=== PATIENT | male | born 1945 | race Caucasian/White ===

== ENCOUNTER → 2018-06-18 08:16 | Outpatient (BNVA) | payer OTHER, SELFPAY | PROVIDERS: PCP Family Medicine; Referring Provider Family Medicine; Visit Provider Student in an Organized Health Care Education/Training Program | DX: G56.03 Carpal tunnel syndrome, bilateral upper limbs (principal); I10 Essential (primary) hypertension | CPT/HCPCS: 99204; 99214 ==

== ENCOUNTER 2018-07-15 09:48 | Day surgery (SDC) | payer OTHER, SELFPAY ==
[2018-07-15 09:56] VITALS: BP 107/71; PULSE 76; RESP 16; TEMP 36; O2SAT 94
[2018-07-15] MEDS: Lactated Ringers 1,000 ML 80 ML IV (10:25)
--- NOTE | 2018-07-15 11:36 | W.PM.DSUDISC ---
Discharge Plan Disposition Patient Disposition: HOME Condition: Good Discharge Details Reason For Visit: R CTS Attending Provider: Tremayne Hernandez Primary Care Provider: Ashwin Silva [place] Meds and New Rx's Prescriptions: New hydrocodone-acetaminophen 5-325 mg tablet 1 tab PO Q4H PRN (Reason: pain) Qty: 5 RF: 0 acetaminophen 500 mg tablet 500 mg PO Q6H PRN PRN (Reason: pain) Qty: 60 RF: 3 ibuprofen 600 mg tablet 600 mg PO TID PRNQty: 90 RF: 3 Continued simvastatin 40 MG tablet 1 tab PO DAILY RF: 0 aspirin [Aspirin Low-Strength] 81 MG tablet,chewable 1 tab PO DAILY RF: 0 cholecalciferol (vitamin D3) 1,000 UNIT tablet 1 tab PO DAILY RF: 0 lisinopril-hydrochlorothiazide 1 EACH tablet 1 ea PO DAILY RF: 0 Discontinued ibuprofen 200 MG tablet 2 tab PO PRN RF: 0 Discharge Instructions Stand Alone Forms: Mary Baez Tunnel Release Referrals: Tremayne Hernandez MD [ [facility] STAFF PHYSICIAN] - Activity:: Elevate Remove Dressings/Wound Care:: 72 hours Shower/Bathe:: 72 hours Diet:: As Tolerated Discharge Orders Discharge Orders: Discharge Order (Routine); Ordered 07/15/18 Ordered By: Tremayne Hernandez DS: Diagnosis Discharge Diagnosis (1) 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
[2018-07-15] MEDS: Sodium Bicarbonate 50 MEQ/50 ML VIAL (11:54)
[2018-07-15] MEDS: Lidocaine 1% Pres-Free 5 ML VIAL (11:54)
[2018-07-15 12:53] VITALS: BP 134/79; PULSE 55; RESP 16; TEMP 35.9; O2SAT 99
--- NOTE | 2018-07-16 07:39 | W.PM.OP ---
Date of service: 07/15/18 Time of Service: 13:39 Operative Note DATE OF PROCEDURE: 07/15/18 PRE-OP DIAGNOSIS: Right Carpal Tunnel Syndrome POST-OP DIAGNOSIS: same PROCEDURE: Right Endoscopic Carpal Tunnel Release SURGEON: Tremayne Hernandez ANESTHESIA: MAC ESTIMATED BLOOD LOSS: 0 PATHOLOGY: none sent TOURNIQUET TIME: 6 COMPLICATIONS: None Patient was transported to: same day Patient's condition: stable Indications: I have seen Mina in clinic for symptoms of carpal tunnel syndrome. The numbness, tingling, and pain limited function. Clinical exam findings with nerve conduction tests confirmed the diagnosis of carpal tunnel syndrome. Nonoperative measures such as bracing, time, activity modifications had been tried but disability and pain persisted. I discussed carpal tunnel release with the patient. I reviewed the risks of the procedure to include, but not limited to, bleeding, infection, pain, stiffness, incomplete release, damage to nerves or vessels, persistent numbness, recurrence. Despite these risks, the patient elected to proceed. Findings: There was tightened carpal tunnel. This was dilated and released successfully with the endoscopic with increased space within the tunnel. The antebrachial fascia was released proximally freeing the median nerve at the wrist. Procedure Description: Mina was greeted in the preoperative holding area where the correct side was identified and marked. The consent was reviewed with the patient and signed. The history and physical was updated. All questions were answered. Mina was taken back to the operating room. The patient was placed into the supine position on the operating room table with the right arm on an arm board. A nonsterile tourniquet was placed high onto the arm. All bony prominences were well padded. Prophylactic antibiotics in the form of cefazolin were administered. The right arm was then prepped with Chloraprep and draped in a standard fashion with stockinette and extremity drape. A timeout to confirm correct identity, side and site, procedure, allergies, anesthesia, and medical concerns was performed. The surgical site was marked in the volar wrist creases in line with the radial border of the fourth ray. This area was anesthetized with approximately 6cc of 1% Lidocaine. The limb was then exsanguinated with an Esmarch. The skin was incised with a 15 blade, approximately 1cm. The skin only was cut and the deeper tissue was dissected bluntly with a tenotomy scissor, avoiding passing nerve and venous structures. The fascia was penetrated and opened bluntly. A two-prong skin hook was placed under this proximal fascial edge. A series of hamate finders were used to identify and dilate the carpal tunnel. Synovial elevator was used to free synovial attachments to the underside of the transverse carpal ligament. My thumb was kept in the palm to demetri the distal extent of the carpal tunnel and correctly position the hand. The Microaire endoscope was inserted without difficulty and without resistance. Excellent visualization showed horizontally running fibers of the transverse carpal ligament (TCL). The distal extent of the TCL was visualized and the end of the scope palpated with the thumb. The blade was elevated and withdrawn from distal to proximal. The TCL was split into two flaps. The endoscope was reinserted to confirm complete release and any remnant ligament was incised. The scope was withdrawn and the proximal aspect of the carpal tunnel was grossly inspected and appeared release with the median nerve visible. The antebrachial fascia at the level of the wrist was then freed from the overlying skin and then the underlying median nerve with blunt dissection. This was transected longitudinally for about 3cm proximal to the wrist incision. The wound was then irrigated with easy flow of irrigant distally and proximally. The incision was closed with a single 4-0 Nylon suture. The wound was dressed with Xeroform, Gauze, Kerlix and Zackary. The tourniquet was deflated with the initial dressing and held with some pressure. Blood flow returned easily to all digits with capillary refill less than 2 seconds. The patient tolerated the procedure well and was returned to the Same Day Surgery area in a stable condition suffering no known complication.
== END 2018-07-15 13:05 | disposition home or self-care (01) ==
PROVIDERS: PCP Family Medicine; Visit Provider Student in an Organized Health Care Education/Training Program
PROC: 01N54ZZ Release Median Nerve, Percutaneous Endoscopic Approach (ICD-10-PCS; CPT 29848; principal; 2018-07-15 11:00)
DX: G56.01 Carpal tunnel syndrome, right upper limb (principal)
CPT/HCPCS: 29848; J0690; J1100; L3650

== ENCOUNTER → 2018-07-23 14:20 | Outpatient (BNVA) | payer OTHER, SELFPAY | PROVIDERS: PCP Family Medicine; Referring Provider Family Medicine; Visit Provider Student in an Organized Health Care Education/Training Program | DX: Z47.89 Encounter for other orthopedic aftercare (principal); G56.01 Carpal tunnel syndrome, right upper limb ==

== ENCOUNTER 2018-07-25 12:55 | Outpatient (REF) | payer OTHER, SELFPAY ==
[2018-07-25 13:47] LABS: HCT 41.4 % (40.0-50.0); HGB 13.8 g/dL (13.5-17.5); Mean Corp. HGB Concentration 33.3 g/dL (32.0-36.0); Mean Corpuscular Hemoglobin 31.9 pg (27.0-33.0); Mean Corpuscular Volume 95.6 fL (80-95); Mean Platelet Volume 11.2 fL (8.0-11.0); Platelet Count 301 x1000/uL (130-400); RBC 4.33 m/cumm (4.50-6.00); RBC Distribution Width 12.9 % (11.8-14.1); White Blood Cell Count 6.03 k/cumm (4.4-10.8)
[2018-07-25 17:41] LABS: Anion Gap 8.5 mmol/L (3-11); BUN 11 mg/dL (7-18); CO2 30.5 mmol/L (21.0-32.0); Calcium 9.4 mg/dL (8.5-10.1); Chloride 99 mmol/L (98-107); Glucose 93 mg/dL (70-100); Potassium 4.1 mmol/L (3.5-5.1); Sodium 138 mmol/L (136-145); TSH (W/Ref FT4) 1.16 uIU/mL (0.358-3.74); Vitamin B12 470 pg/mL (193-986)
[2018-07-28 12:25] LABS: Syphilis Serology (RPR) Negative (Negative)
== END 2018-07-25 13:15 ==
LOC: NCHCN 12:55
PROVIDERS: PCP Family Medicine; Visit Provider Family Medicine
DX: R41.3 Other amnesia (principal); I10 Essential (primary) hypertension
CPT/HCPCS: 80048; 85027; 82607; 84443; 86592

== ENCOUNTER 2018-08-22 02:22 | Outpatient (CLI) | payer OTHER, SELFPAY ==
--- NOTE | 2018-08-22 13:00 | DI.US_ITS ---
SYMPTOMS/DIAGNOSIS: NEW PAIN, RIGHT TESTICLE, ENLARGEMENT OF RIGHT TESTICLE, TENDERNESS OF EPIDIDYMIS SCROTAL ULTRASOUND: The testicles are normal in size and show normal blood flow. There is no evidence of mass, torsion or orchitis. There is a large right hydrocele containing debris. There are multiple cysts of the right epididymis in the region of the epididymal head. A few tiny cysts are seen in the left epididymal head. There is no increased blood flow to suggest epididymitis. There is a small left hydrocele, which appears clear. IMPRESSION: Multiple cysts in the head of the right epididymis, the largest measuring 2.3 cm. A large right hydrocele is present containing some internal debris.
== END 2018-08-22 02:42 ==
PROVIDERS: PCP Family Medicine; Visit Provider Family Medicine
DX: N50.811 Right testicular pain (principal); N50.3 Cyst of epididymis; N43.3 Hydrocele, unspecified; N44.8 Other noninflammatory disorders of the testis
CPT/HCPCS: 76870

== ENCOUNTER 2018-11-10 17:49 | Outpatient (REF) | payer OTHER, SELFPAY ==
[2018-11-10 18:39] LABS: C-Reactive Protein 0.13 mg/dL (0.0-0.3)
== END 2018-11-10 18:09 ==
LOC: NCHCN 17:49
PROVIDERS: PCP Family Medicine; Visit Provider Family Medicine
DX: Z51.81 Encounter for therapeutic drug level monitoring (principal); Z79.899 Other long term (current) drug therapy; I10 Essential (primary) hypertension
CPT/HCPCS: 80178; 86140

== ENCOUNTER 2018-12-05 16:32 | Outpatient (REF) | payer OTHER, SELFPAY ==
[2018-12-05 18:49] LABS: HGB 13.4 g/dL (13.5-17.5); Mean Corp. HGB Concentration 33.5 g/dL (32.0-36.0); Mean Corpuscular Hemoglobin 32.7 pg (27.0-33.0); Mean Corpuscular Volume 97.6 fL (80-95); Mean Platelet Volume 10.9 fL (8.0-11.0); Platelet Count 279 x1000/uL (130-400); RBC Distribution Width 13.3 % (11.8-14.1); White Blood Cell Count 6.01 k/cumm (4.4-10.8)
[2018-12-05 19:03] LABS: Lithium 0.43 mmol/L (0.60-1.20)
[2018-12-05 19:23] LABS: Anion Gap 8.9 mmol/L (3-11); BUN 18 mg/dL (7-18); CO2 27.1 mmol/L (21.0-32.0); Chloride 108 mmol/L (98-107); Glucose 112 mg/dL (70-100); NT-proBNP 145 pg/mL; Potassium 4.1 mmol/L (3.5-5.1); Sodium 144 mmol/L (136-145); TSH (W/Ref FT4) 1.22 uIU/mL (0.36-3.74)
== END 2018-12-05 16:52 ==
LOC: NCHCN 16:32
PROVIDERS: PCP Family Medicine; Visit Provider Family Medicine
DX: Z79.899 Other long term (current) drug therapy (principal); Z51.81 Encounter for therapeutic drug level monitoring; R06.02 Shortness of breath
CPT/HCPCS: 80048; 85027; 80178; 83880; 84443

== ENCOUNTER 2018-12-11 00:14 | Outpatient (CLI) | payer OTHER, SELFPAY ==
--- NOTE | 2018-12-11 11:08 | DI.RAD_ITS ---
SYMPTOMS/DIAGNOSIS: SHORTNESS OF BREATH, R06.02, NEW SHORTNESS OF BREATH PA AND LATERAL CHEST: The heart is not enlarged. The lungs are clear with some apparent bibasilar linear scarring. No pleural effusion seen. CONCLUSION: No evidence of acute process.
== END 2018-12-11 00:34 ==
PROVIDERS: PCP Family Medicine; Visit Provider Family Medicine
DX: R06.02 Shortness of breath (principal)
CPT/HCPCS: 71046

== ENCOUNTER 2019-01-15 00:13 | Outpatient (CLI) | payer OTHER, SELFPAY ==
--- NOTE | 2019-01-15 11:30 | ETT_ITS ---
*[facility]* *[facility]* [address] [place] [address] Stress Electrocardiography Wilberto protocol Date of study: 01/15/2019 *PATIENT PRESENTATION* Height: 177.8cm (70in) Blood Pressure: Weight: 72.7kg (160lb) BSA: 1.9m^2 Ordering physician: Ashwin Silva Impressions: Normal study after maximal exercise. Summary: 1. Stress ECG conclusions: Connolly treadmill score: 10. This score predicts a low risk of cardiac events. Indication: R06.02. History: REASON FOR TESTING: PATIENT REPORTS SOB WITH ACTIVITY SINCE SEPTEMBER OF THIS YEAR. HE STATES DURING HIS WARM UP MOUNTAIN BIKING ACTIVITY IS WHEN HE GETS SOB AND ONCE IT GOES AWAY HE IS FINE FOR THE REST OF THE DAY. HE DENIES CHEST PAIN SOB UPON ARRIVAL TO TESTING TODAY. SIGNIFICANT PAST MEDICAL HISTORY: ANXIETY ATTACKS, INSOMNIA. SMOKING STATUS: QUIT 1987. SMOKED PIPE FOR 30 YEARS. EXERCISE ROUTINE: MOUNTAIN BIKING FIVE DAYS PER WEEK FOR APPROXIMATELY THREE HOURS PER TIME. Risk factors: Family history of coronary artery disease. Hypertension. Dyslipidemia. Cholesterol: 191mg/dl. HDL: 47mg/dl. LDL: 128mg/dl. Triglycerides: 59mg/dl. ALLERGIES: SULFA. MEDICATIONS: RISPERIDONE 2.5 MG DAILY, LISINOPRIL 10 MG DAILY, IBUPROFEN 200-600 MG PRN. Protocol: Wilberto protocol. Baseline ECG: SINUS BRADYCARDIA. HE 52 BPM. Stress protocol: + +---+ + !Stage !HR !BP (mmHg) ! + +---+ + !Baseline supine !52 !172/90 (117)! + +---+ + !Baseline standing !54 !154/80 (105)! + +---+ + !Stage I; 1.7mph, 10degrees; 3 min !85 !160/82 (108)! + +---+ + !Stage II; 2.5mph, 12degrees; 3 min !98 !172/68 (103)! + +---+ + !Stage III; 3.4mph, 14degrees; 3 min!126!198/92 (127)! + +---+ + !Peak stress !140! ! + +---+ + !Recovery; 1 min !69 !184/82 (116)! + +---+ + !Recovery; 3 min !63 !164/88 (113)! + +---+ + !Recovery; 6 min !61 !148/84 (105)! + +---+ + * Stress results: STRESS TEST ENDED IN 9 MINUTES 44 SECONDS DUE TO INCREASING DIFFICULTY WITH WALKING WITH THE SPEED OF TREADMILL. PATIENT STATES HE COULD HAVE GONE LONGER. SLIGHTLY HYPERTENSIVE BLOOD PRESSURE AT BASELINE. NORMAL HEART RATE AND BLOOD PRESSURE RESPONSE TO EXERCISE. MAX HEART RATE:140. 96 % OF TARGET HEART RATE ACHIEVED. MET'S: 11.34. RARE PAC'S NO ANGINA. NO SIGNIFICNT ST SEGMENT CHANGES. ABOVE AVERAGE FUNCTIONAL CAPACITY. The rate-pressure product for the peak heart rate and blood pressure was 17520tk Hg/min. Stress ECG: Connolly treadmill score: 10. This score predicts a low risk of cardiac events. Study data: Fortunato Merino MD supervised and was readily available during the procedure. This study was interpreted by [facility]. Study status: Routine. Consent: The risks, benefits, and alternatives to the procedure were explained to the patient and informed consent was obtained. Procedure: Initial setup. A baseline ECG was recorded. Surface ECG leads and manual cuff blood pressure measurements were monitored. Heart sounds: Normal. Lung sounds: Normal. Treadmill exercise testing was performed using the Wilberto protocol. Study completion: The patient tolerated the procedure well and was discharged from the lab. Discharge: The patient left the laboratory in stable condition. Birthdate: Patient birthdate: 1945. Sex: Gender: male. Study date: Study date: 01/15/2019. Study time: 00:01 AM. Signature Documentation: The Stress ECG portion of this study was interpreted by Fortunato Merino MD. Electronically signed by Fortunato Merino 01/15/2019 14:55
== END 2019-01-15 00:33 ==
PROVIDERS: PCP Family Medicine; Visit Provider Family Medicine
DX: R06.02 Shortness of breath (principal); I10 Essential (primary) hypertension; E78.5 Hyperlipidemia, unspecified; F41.9 Anxiety disorder, unspecified; Z87.891 Personal history of nicotine dependence
CPT/HCPCS: 93016; 93018; 93017

== ENCOUNTER 2019-03-25 17:30 | Outpatient (REF) | payer OTHER, SELFPAY ==
[2019-03-25 17:04] LABS: Hemoglobin A1C 6.1 % (4.5-6.2)
[2019-03-25 17:08] LABS: Calculated LDL 106 mg/dL; Cholesterol 167 mg/dL (<200); HDL Cholesterol 46 mg/dL (40-60); Triglyceride 77 mg/dL (<150)
== END 2019-03-25 17:50 ==
LOC: NCHCN 17:30
PROVIDERS: PCP Family Medicine; Visit Provider Family Medicine
DX: E78.5 Hyperlipidemia, unspecified (principal); I10 Essential (primary) hypertension; Z13.1 Encounter for screening for diabetes mellitus; T43.595S Adverse effect of other antipsychotics and neuroleptics, sequela
CPT/HCPCS: 80061; 83036

== ENCOUNTER 2019-09-16 10:02 | Outpatient (REF) | payer OTHER, SELFPAY ==
--- NOTE | 2019-09-16 09:45 | SKI_PTH ---
PATIENT: Mina Hooks LOC: [facility] U#:[id number] AGE/SX: 73/M ROOM: RE09/16/[address]: Ashwin Silva : 1945 BED: DIS: 09/16/2019 SPEC #: [id number] RECD: 09/16/19 14:42 STATUS: SHIVA GAFFNEY #: [id number] [place]: 09/16/19 09:[address]: Ashwin Silva DEPT: Surgical Specimen RECD BY: Bridget Mcclendon Tissues: 1 - SKIN BIOPSY(SHAVE/PUNCH) Procedures: SKIN LEVEL 4 SPECIAL STAIN 1 Comments: [id number]
== END 2019-09-16 10:22 ==
LOC: NCHCN 10:02
PROVIDERS: PCP Family Medicine; Visit Provider Family Medicine
DX: L30.8 Other specified dermatitis (principal)
CPT/HCPCS: 88305; 88312

== ENCOUNTER 2019-10-02 08:10 | Outpatient (CLI) | payer OTHER, SELFPAY ==
[2019-10-03 14:09] LABS: COVID-19 RT-PCR UVMMC Result Negative (Negative)
== END 2019-10-02 08:30 ==
PROVIDERS: PCP Family Medicine; Visit Provider Student in an Organized Health Care Education/Training Program
DX: Z11.59 Encounter for screening for other viral diseases (principal)
CPT/HCPCS: U0003

== ENCOUNTER 2019-10-06 06:22 | Day surgery (SDC) | payer OTHER, SELFPAY ==
--- NOTE | 2019-10-05 22:10 | HPE_ITS ---
Documented by User: Zahra Sweeney 10/05/19 22:15 Assessment and Plan Assessment and plan (1) Carpal tunnel syndrome of left wrist: Status: Chronic Assessment and plan: Plan: Patient tested negative for COVID-19 on 10/02/2019. Patient states he is remained in quarantine since being tested and denies contact with any COVID-19 positive persons. Educated patient on surgery covering surgical technique, recovery process, lauren efits and risks including but not limited to risk of infection, blood clot, damage to soft tissue/blood vessels/nerves in detail. After discussion patient gives verbal understanding of risks and elects to proceed with scheduling surgery. Patient had opportunity to have questions answered to their satisfaction. Patient will continue to be scheduled for left ECTR with Dr. Hernandez later today. History of Present Illness Narrative: Mr. Hooks is a 73-year-old male who presents to hospital for scheduled left ECTR with Dr. Hernandez later today. Patient initially had been experiencing bilateral carpal tunnel symptoms dating back to Fall 2017. Patient was seen in orthopedic clinic and underwent right ECTR on 07/15/2018 which did well. Initially patient was going to have his left carpal tunnel released shortly after his right, however due to personal issues patient postponed his left carpal tunnel release. Unfortunately, patient has continued to have numbness and tingling in his left hand that interferes with activities of daily life. Due to patient's continued symptoms he was offered surgical intervention and elected to proceed. Review of Systems Cardiovascular Cardiovascular: Denies chest pain, Denies dyspnea and Denies dyspnea on exertion Respiratory Respiratory: Denies cough, Denies dyspnea and Denies dyspnea on exertion [facility] Medical History Hyperlipidemia Hypertension Migraine headache (Chronic) Surgical History Carpal tunnel syndrome of right wrist (Chronic) Status post right ECTR on 07/15/2018 History of colonoscopy (Chronic) History of removal of cyst (Acute) Family History Mother No problems noted. Father Personal history of malignant neoplasm Small bowel malignancy Social History Smoking/Tobacco Use Status: Former Tobacco Use Quit Date: 04/29/91 Alcohol Intake: never Drug use: Never Substance use type: does not use Do you feel safe at home: Yes Meds Home Medications and Allergies Home Medications Medication Instructions Recorded Confirmed Type cholecalciferol (vitamin D3) 1 tab PO DAILY 11/27/13 10/06/19 History ibuprofen 600 mg PO TID PRN #90 tab 07/15/18 10/06/19 Rx lamotrigine 25 mg PO BID 10/05/19 10/06/19 History lisinopril 10 mg PO DAILY 10/05/19 10/06/19 History risperidone 0.5 mg PO QHS 10/05/19 10/06/19 History Allergies Allergy/AdvReac Type Severity Reaction Status Date / Time Sulfa (Sulfonamide Allergy Intermediate Unverified 10/06/19 06:30 Antibiotics) Exam Resp Effort & Inspection: normal respiratory effort and able to speak in complete sentences Auscultation: clear to auscultation bilaterally, no rales, no rhonchi and no wheezes Cardio Heart Sounds: S1 normal, S2 normal and no murmurs Pulses: radial pulses present bilaterally 2+ Documented by User: Tremayne Hernandez MD 10/06/19 07:10 Date of service: 10/06/19 Time of Service: 07:07 Assessment and Plan Assessment and plan (1) Carpal tunnel syndrome of left wrist: Status: Chronic Assessment and plan: After a review of clinical history, exam findings, and nerve conduction testing, carpal tunnel syndrome is the most reasonable diagnosis. We discussed possible treatment options to include nighttime splinting, anti-inflammatories, carpal tunnel injections, and eventually surgery. Due to the persistence of symptoms and their daily limitations with normal function, I offered a carpal tunnel release. I discussed the technical details of carpal tunnel release and that I perform an endoscopic release, but would make a larger, open, incision if necessary for visualization. I discussed the risks of the procedure to include, but not limited to, bleeding, infection, palmar pain, stiffness, damage to nerves, damage to vessels, damage to tendons, weakness, recurrence, and incomplete release. Given these risks, Mina desires to proceed. History of Present Illness History of Present Illness Chief Complaint: Left Carpal Tunnel Syndrome Narrative: Mina is a 73-year-old who I have seen previously for left carpal tunnel syndrome. He had a successful endoscopic release of his right carpal t unnel. He currently reports numbness and tingling in the median nerve distribution of the left hand. He has had no changes to his health. He bikes regularly. He has no chest pain or shortness of breath. Review of Systems All systems reviewed & are unremarkable except as noted in HPI and below PFSH Medical History Hyperlipidemia Hypertension Migraine headache (Chronic) Surgical History Carpal tunnel syndrome of right wrist (Chronic) Status post right ECTR on 07/15/2018 History of colonoscopy (Chronic) History of removal of cyst (Acute) Family History Mother No problems noted. Father Personal history of malignant neoplasm Small bowel malignancy Social History Smoking/Tobacco Use Status: Former Tobacco Use Quit Date: 04/29/91 Alcohol Intake: never Drug use: Never Substance use type: does not use Do you feel safe at home: Yes Meds Home Medications and Allergies Home Medications Medication Instructions Recorded Confirmed Type cholecalciferol (vitamin D3) 1 tab PO DAILY 11/27/13 10/06/19 History ibuprofen 600 mg PO TID PRN #90 tab 07/15/18 10/06/19 Rx lamotrigine 25 mg PO BID 10/05/19 10/06/19 History lisinopril 10 mg PO DAILY 10/05/19 10/06/19 History risperidone 0.5 mg PO QHS 10/05/19 10/06/19 History Allergies Allergy/AdvReac Type Severity Reaction Status Date / Time Sulfa (Sulfonamide Allergy Intermediate Unverified 10/06/19 06:30 Antibiotics) Exam Const General: cooperative, healthy appearing, comfortable and no acute distress Nutritional Appearance: average body habitus Orientation: alert, awake and oriented x3 Resp Effort & Inspection: normal respiratory effort Auscultation: clear to auscultation bilaterally Cardio Rate: regular rate Rhythm: regular rhythm Extrem Other: Left hand shows no thenar atrophy. Positive Phalen's and positive Jose's compression test. Decreased sensation in the median nerve distribution. Palpable radial pulse.
[2019-10-06 06:25] VITALS: BP 133/81; PULSE 54; RESP 17; TEMP 36.2; O2SAT 97
[2019-10-06] MEDS: Lactated Ringers 1,000 ML 80 ML IV (06:50)
--- NOTE | 2019-10-06 07:11 | W.PM.DSUDISC ---
Discharge Plan Disposition Patient Disposition: HOME Condition: Good Discharge Details Reason For Visit: Left Carpal Tunnel Surgery Attending Provider: Tremayne Hernandez Primary Care Provider: Ashwin Silva [place] Meds and New Rx's Prescriptions: New acetaminophen 500 mg tablet 1,000 mg PO Q8H PRN (Reason: pain) Qty: 60 RF: 3 Continued cholecalciferol (vitamin D3) 1,000 UNIT tablet 1 tab PO DAILY RF: 0 lamotrigine 25 mg Tablet 25 mg PO BID RF: 0 lisinopril 10 mg Tablet 10 mg PO DAILY RF: 0 risperidone 0.5 mg tablet 0.5 mg PO QHS RF: 0 ibuprofen 600 mg tablet 600 mg PO TID PRNQty: 60 RF: 3 Discharge Instructions Stand Alone Forms: Mary Baez Tunnel Release Referrals: Tremayne Hernandez MD [ [facility] STAFF PHYSICIAN] - Activity:: Elevate Remove Dressings/Wound Care:: 48 hours Shower/Bathe:: 48 hours Diet:: As Tolerated Discharge Orders Discharge Orders: Discharge Order (Routine); Ordered 10/06/19 Ordered By: Tremayne Hernandez DS: Diagnosis Discharge Diagnosis (1) Carpal tunnel syndrome of left wrist: Status: Chronic
[2019-10-06] MEDS: ceFAZolin 2 GM/50 ML BAG IVPB (07:25)
[2019-10-06] MEDS: Sodium Bicarbonate 50 MEQ/50 ML VIAL (07:47)
[2019-10-06 08:28] VITALS: BP 116/70; PULSE 55; RESP 17; TEMP 36.1; O2SAT 98
--- NOTE | 2019-10-06 20:02 | W.PM.OP ---
Date of service: 10/06/19 Time of Service: 08:03 Operative Note Operative Note DATE OF PROCEDURE: 10/06/19 PRE-OP DIAGNOSIS: Left carpal tunnel syndrome POST-OP DIAGNOSIS: same PROCEDURE: Left Endoscopic Carpal Tunnel Release SURGEON: Tremayne Hernandez ANESTHESIA: GETRicky ESTIMATED BLOOD LOSS: 0 PATHOLOGY: none sent TOURNIQUET TIME: 6 COMPLICATIONS: None Patient was transported to: same day Patient's condition: stable Indications: I have seen Mina in clinic for symptoms of carpal tunnel syndrome. The numbness, tingling, and pain limited function. Clinical exam findings confirmed the diagnosis of carpal tunnel syndrome. Nonoperative measures such as bracing, time, activity modifications had been tried but disability and pain persisted. He had a successful endoscopic carpal tunnel release on the right side. I discussed carpal tunnel release with the patient. I reviewed the risks of the procedure to include, but not limited to, bleeding, infection, pain, stiffness, incomplete release, damage to nerves or vessels, persistent numbness, recurrence. Despite these risks, the patient elected to proceed. Findings: There was tightened carpal tunnel. This was dilated and released successfully with the endoscopic with increased space within the tunnel. The antebrachial fascia was released proximally freeing the median nerve at the wrist. Procedure Description: Mina was greeted in the preoperative holding area where the correct side was identified and marked. The consent was reviewed with the patient and signed. The history and physical was updated. All questions were answered. He was taken back to the operating room. The patient was placed into the supine position on the operating room table with the left arm on an arm board. A nonsterile tourniquet was placed high onto the arm. All bony prominences were well padded. Prophylactic antibiotics in the form of cefazolin were administered. The left arm was then prepped with Chloraprep and draped in a standard fashion with stockinette and extremity drape. A timeout to confirm correct identity, side and site, procedure, allergies, anesthesia, and medical concerns was performed. The surgical site was marked in the volar wrist creases in line with the radial border of the fourth ray. This area was anesthetized with approximately 6cc of 1% Lidocaine. The limb was then exsanguinated with an Esmarch. The skin was incised with a 15 blade, approximately 1cm. The skin only was cut and the deeper tissue was dissected bluntly with a tenotomy scissor, avoiding passing nerve and venous structures. The fascia was penetrated and opened bluntly. A two-prong skin hook was placed under this proximal fascial edge. A series of hamate finders were used to identify and dilate the carpal tunnel. Synovial elevator was used to free synovial attachments to the underside of the transverse carpal ligament. My thumb was kept in the palm to demetri the distal extent of the carpal tunnel and correctly position the hand. The Microaire endoscope was inserted without difficulty and without resistance. Excellent visualization showed horizontally running fibers of the transverse carpal ligament (TCL). The distal extent of the TCL was visualized and the end of the scope palpated with the thumb. The blade was elevated and withdrawn from distal to proximal. The TCL was split into two flaps. The endoscope was reinserted to confirm complete release and any remnant ligament was incised. The scope was withdrawn and the proximal aspect of the carpal tunnel was grossly inspected and appeared release with the median nerve visible. The antebrachial fascia at the level of the wrist was then freed from the overlying skin and then the underlying median nerve with blunt dissection. This was transected longitudinally for about 3cm proximal to the wrist incision. The wound was then irrigated with easy flow of irrigant distally and proximally. The incision was closed with a single 4-0 Nylon suture. The wound was dressed with Xeroform, Gauze, Kerlix and Zackary. The tourniquet was deflated with the initial dressing and held with some pressure. Blood flow returned easily to all digits with capillary refill less than 2 seconds. The patient tolerated the procedure well and was returned to the Same Day Surgery area in a stable condition suffering no known complication.
== END 2019-10-06 08:38 | disposition home or self-care (01) ==
PROVIDERS: PCP Family Medicine; Visit Provider Student in an Organized Health Care Education/Training Program
PROC: 01N54ZZ Release Median Nerve, Percutaneous Endoscopic Approach (ICD-10-PCS; CPT 29848; principal; 2019-10-06 07:30)
DX: G56.02 Carpal tunnel syndrome, left upper limb (principal); I10 Essential (primary) hypertension
CPT/HCPCS: 29848; NC; J0690; L3650

== ENCOUNTER → 2019-10-16 11:41 | Outpatient (BNVA) | payer OTHER, SELFPAY | PROVIDERS: PCP Family Medicine; Referring Provider Family Medicine; Visit Provider Student in an Organized Health Care Education/Training Program | DX: Z47.89 Encounter for other orthopedic aftercare (principal); G56.02 Carpal tunnel syndrome, left upper limb ==

== ENCOUNTER 2020-06-17 08:50 | Emergency (ER) | payer OTHER, SELFPAY ==
[2020-06-17 08:56] VITALS: BP 137/88; PULSE 70; RESP 20; TEMP 36.4; O2SAT 98
--- NOTE | 2020-06-17 09:00 | DI.RAD_ITS ---
EXAM: XR FINGER LT INDEX CLINICAL HISTORY: dog bite tip of finger. TECHNIQUE: 2D digital imaging was performed. COMPARISON: None. FINDINGS: There is amputation of the tuft of the distal phalanx of the index finger. No foreign body is seen. There are degenerative changes of the distal interphalangeal joint. IMPRESSION: Tuft amputation. DATA REPOSITORY: RADIATION DOSE DELIVERED:
--- NOTE | 2020-06-17 09:00 | ED.GENADUL_ITS ---
Discharge Plan Disposition Patient Disposition: HOME Condition: Good Discharge Details Clinical Impression: Dog bite, Finger laceration, Finger fracture, left, Abrasion of arm, right, Open fracture Primary Care Provider: Ashwin Silva ED Provider: Concepcion Alberto Home Meds and New Rx's Prescriptions: New amoxicillin-pot clavulanate [Augmentin] 875-125 mg tablet 1 tab PO BID Qty: 14 RF: 0 Continued cholecalciferol (vitamin D3) 1,000 UNIT tablet 1 tab PO DAILY RF: 0 lamotrigine 25 mg Tablet 25 mg PO BID RF: 0 lisinopril 10 mg Tablet 10 mg PO DAILY RF: 0 risperidone 0.5 mg tablet 0.5 mg PO QHS RF: 0 acetaminophen 500 mg tablet 1,000 mg PO Q8H PRN (Reason: pain) Qty: 60 RF: 3 ibuprofen 600 mg tablet 600 mg PO TID PRNQty: 60 RF: 3 Restasis 0.05 % dropperette 1 drp ophthalmic (eye) BID RF: 0 Discharge Instructions Instructions: Animal Bite (ED), Finger Fracture (ED), Finger Laceration (ED) Additional Instructions: Keep the wound clean, dry, covered. Please change the dressing once per day. When changing please evaluate for signs of infection including redness, warmth, drainage, increased pain, fever/chills. If you develop any of these or other new/worsening symptoms please seek care urgently once again. Please take the Augmentin as prescribed. Please follow-up with orthopedics, please call number listed below to schedule follow-up appointment. Please keep finger immobilized. Referrals: Tremayne Hernandez MD [ [facility] STAFF PHYSICIAN] - Discharge Data Discharge Date/Time-TO BE ENTERED AT DEPARTURE: 06/17/20 10:40 Medical Decision Making Patient is a pleasant 74-year-old male, [id number], presenting today with chief complaint of dog bite. He reports that prior to arrival his dog he was previously diagnosed with the idiopathic aggression bit his left finger and scratched his left forearm. He describes this is an unprovoked bite. He reports that the dog is up-to-date on immunizations. He had the last tetanus 4 years ago. He denies any numbness or tingling. No other injury at the time of the incident. The exam of the right forearm shows scattered abrasions but no deep wounds. Patient has good strength, sensation and is moving all of his joints well. Exam of the left hand is significant for an avulsed area of tissue on the posterior aspect of the distal phalanx left index finger. Nail initially appeared to be partially intact on further exam that did not completely torn away with no residual nail noted. Patient has a small amount of active bleeding. There is a flap on the palmar side it does appear to be fairly thick with good capillary refill there is able to be reapproximated tip of the digit. Bone is not visualized. He has good movement of the DIP joint. 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 Plan for x-ray of the left hand, I am concerned for possible fracture to the distal phalanx. Wound on the right forearm was cleansed and dressed by nursing staff. FINDINGS: There is amputation of the tuft of the distal phalanx of the index finger. No foreign body is seen. There are degenerative changes of the distal interphalangeal joint. IMPRESSION: Tuft amputation. Discussed these findings with the patient. Patient I also discussed care of the left index finger. I do feel that loosely reapproximating the flap would be of benefit to the patient. Discussed care of the nailbed. We discussed bolstering this open in hopes that the nail will be able to grow back. We discussed ri sk/benefits as well as expected procedural steps. Patient voiced understanding and wished to proceed. Please see procedure note. Digit was anesthetized using a digital block. Patient tolerated this well and yielded good anesthetic results. Wound was copiously irrigated explored to base in a bloodless field no foreign body or debris noted. Flap was reapproximated with 3 simple interrupted stitches. Nail bed was bolstered open with tinfoil packet. This was then held in place with a superficial adhesive. Wound was covered with a bulky, nonadherent dressing by nursing staff and splint given to the patient. He will change the dressing once per day and monitor for signs of infection. Patient was given his first dose of Augmentin here and will continue on. I recommended follow-up with orthopedics. Strict return precautions were discussed. All questions and concerns were addressed and he is in agreement with plan. HPI General Mode of arrival: ambulatory . Date/Time Provider Initiated Documentation: 06/17/20 08:51 . Limitations to Documentation: no limitations . Information obtained by: patient and RN notes reviewed . History of Present Illness 74 year old M presents to the emergency department with the chief complaint of dog bite, described as mild, with intensity rated at 1. Quality is described as aching, and is localized to the left, right and upper extremity. Patient reports no radiation. Patient started experiencing this minute(s) and it has been constant. Immobilization improves symptom(s), Movement worsens symptoms . Patient notes no other symptoms.. Patient did receive the following treatments prior to arrival, none Related Data Home Medications Medication Instructions Recorded Confirmed cholecalciferol (vitamin D3) 1 tab PO DAILY 11/27/13 06/17/20 lamotrigine 25 mg PO BID 10/05/19 06/17/20 lisinopril 10 mg PO DAILY 10/05/19 06/17/20 risperidone 0.5 mg PO QHS 10/05/19 06/17/20 acetaminophen 1,000 mg PO Q8H PRN #60 tab 10/06/19 06/17/20 ibuprofen 600 mg PO TID PRN #60 tab 10/06/19 06/17/20 Restasis 1 drp OPHTHALMIC (EYE) BID 06/17/20 06/17/20 amoxicillin-pot clavulanate 1 tab PO BID #14 tab 06/17/20 [Augmentin] Previous Rx's Medication Instructions Recorded acetaminophen 1,000 mg PO Q8H PRN #60 tab 10/06/19 ibuprofen 600 mg PO TID PRN #60 tab 10/06/19 amoxicillin-pot clavulanate 1 tab PO BID #14 tab 06/17/20 [Augmentin] Allergies Allergy/AdvReac Type Severity Reaction Status Date / Time Sulfa (Sulfonamide Allergy Intermediate Unverified 06/17/20 08:59 Antibiotics) General Stated Complaint: AnimalBite EDITH: 4 Review of Systems Constitutional Constitutional: Reports as per HPI, Denies chills, Denies fever(s), Denies headache(s) and Denies weakness ENT Ears, Nose, Mouth, and Throat: Denies headache(s) Cardiovascular Cardiovascular: Reports as per HPI Respiratory Respiratory: Reports as per HPI and Denies cough Musculoskeletal Musculoskeletal: Reports as per HPI and Denies tingling Integumentary/Breasts Skin/Breast: Reports as per HPI, Reports skin swelling and Reports wounds Neurologic Neurologic: Reports as per HPI, Denies headache(s), Denies tingling, Denies paresthesias and Denies weakness FOR[facility]LY [facility] Medical History (Updated 06/17/20 @ 10:21 by DK Choudhary) Hyperlipidemia Hypertension Migraine headache Surgical History Carpal tunnel syndrome of right wrist Status post right ECTR on 07/15/2018 History of colonoscopy History of removal of cyst Family History Mother No problems noted. Father Personal history of malignant neoplasm Small bowel malignancy Social History Smoking/Tobacco Use Status: Former Tobacco Use Quit Date: 04/29/91 Smoking risk assessment performed?: Yes Alcohol Intake: never Drug use: Never Substance use type: does not use Do you feel safe at home: Yes Exam Const General: cooperative, healthy appearing, comfortable, no acute distress, well developed and well groomed Nutritional Appearance: average body habitus and well nourished Orientation: alert and awake Resp Effort & Inspection: normal respiratory effort, able to speak in complete sentences and no respiratory distress Cardio Rate: regular rate Rhythm: regular rhythm Skin Trauma: abrasion (as below) and laceration (as below) Neuro General: patient alert and patient awake Cognition: normal cognition Speech: speech normal Gait: normal gait Motor: muscle tone normal throughout Sensory Exam: no sensory deficits noted Extrem Elbow/forearm/wrist images: 1. 2. 3. multiple superficial abrasions. No deep wounds. Full ROM of elbow, wrist, digits. Sensation intact. 2+ distal pulses. Hand/finger images: 1. Missing area of tissue. Distal half of the nail is avulsed. Palmar side intact but flapped forward. Small amount of bleeding. Sensation intact. Able to flex/extend DIP joint well Psych Appearance: grossly normal and well kempt Mental Status: mental status grossly normal Speech and Movement: speech and movement normal Course Vital Signs Vital signs: Vital Signs Temperature 36.4 C L 06/17/20 08:56 Pulse 70 06/17/20 08:56 Respiratory Rate 20 06/17/20 08:56 Blood Pressure 137/88 06/17/20 08:56 Pulse Oximetry 98 06/17/20 08:56 Temperature 36.4 C L 06/17/20 08:56 Temperature Source Skin 06/17/20 08:56 Pulse 70 06/17/20 08:56 Respiratory Rate 20 06/17/20 08:56 Blood Pressure 137/88 06/17/20 08:56 Blood Pressure Position Sitting 06/17/20 08:56 Pulse Oximetry 98 06/17/20 08:56 Oxygen Delivery Method Room Air 06/17/20 08:56 Oxygen Flow Rate 0 06/17/20 08:56 Pain Level 1 06/17/20 08:56 Procedures Laceration Laceration 1: Site: hand Side (If applicable): left Size (cm): 3 Description: irregular and clean Local Anesthetic: Lidocaine 1% Amount of anesthesia used (mL): 6 Pre-repair: wound explored and irrigated extensively Skin layer closed with: nylon Size (cm): 5-0 Number of sutures: 3 Technique: simple, interrupted
[2020-06-17] MEDS: Amoxicillin 875/Clav. 125 TAB PO (09:17)
--- NOTE | 2020-06-17 09:20 | NUR.NOTE ---
Nursing Note: Lorenzo Mart [place] [facility] Officer is aware of the report. Animal bite report faxed to [facility]. Rossy Montes De Oca
== END 2020-06-17 10:40 | disposition home or self-care (01) ==
PROVIDERS: Emergency Provider Physician Assistant; PCP Family Medicine
DX: S61.311A Laceration without foreign body of left index finger with damage to nail, initial encounter (principal); S50.811A Abrasion of right forearm, initial encounter; S62.601B Fracture of unspecified phalanx of left index finger, initial encounter for open fracture; W54.0XXA Bitten by dog, initial encounter; Y92.9 Unspecified place or not applicable
CPT/HCPCS: 12002; 73140

== ENCOUNTER → 2020-06-24 09:47 | Outpatient (BNVA) | payer OTHER, SELFPAY | PROVIDERS: PCP Family Medicine; Referring Provider Student in an Organized Health Care Education/Training Program; Visit Provider Physician Assistant Surgical | DX: S62.601A Fracture of unspecified phalanx of left index finger, initial encounter for closed fracture (principal); S61.211A Laceration without foreign body of left index finger without damage to nail, initial encounter; W54.0XXA Bitten by dog, initial encounter | CPT/HCPCS: 99213 ==

== ENCOUNTER → 2020-07-01 10:58 | Outpatient (BNVA) | payer OTHER, SELFPAY | PROVIDERS: PCP Family Medicine; Referring Provider Family Medicine; Visit Provider Physician Assistant Surgical | DX: S61.211A Laceration without foreign body of left index finger without damage to nail, initial encounter (principal); S62.601A Fracture of unspecified phalanx of left index finger, initial encounter for closed fracture; W54.0XXA Bitten by dog, initial encounter; Z48.02 Encounter for removal of sutures | CPT/HCPCS: 99213 ==

== ENCOUNTER 2020-08-04 18:40 | Outpatient (REF) | payer OTHER, SELFPAY ==
[2020-08-04 16:21] LABS: HCT 42.1 % (40.0-50.0); MCH 31.5 pg (27.0-33.0); MCHC 33.3 % (32.0-36.0); MCV 94.8 fL (80-95); MPV 10.4 fL (8.0-11.0); Platelet Count 285 10^3/uL (130-400); RBC 4.44 10^6/uL (4.36-5.78); RDW 12.5 % (11.8-14.1); RDW-SD 43.7 fL; WBC 4.69 10^3/uL (4.4-10.8)
[2020-08-04 16:35] LABS: Iron 84 ug/dL (65-175); Total Iron Binding Capacity 262 ug/dL (250-450); Transferrin Sat 32 % (20-55)
[2020-08-04 16:54] LABS: Anion Gap 8.8 mmol/L (3-11); BUN 15 mg/dL (7-18); CO2 28.2 mmol/L (21.0-32.0); CREATININE 1.1 mg/dL (0.70-1.30); Calcium 8.7 mg/dL (8.5-10.1); Chloride 106 mmol/L (98-107); Glucose 100 mg/dL (74-106); Potassium 4.3 mmol/L (3.5-5.1); Sodium 143 mmol/L (136-145); Vitamin B12 461 pg/mL (193-986)
== END 2020-08-04 18:41 | disposition home or self-care (01) ==
LOC: NCHCN 18:40
PROVIDERS: PCP Family Medicine; Visit Provider Family Medicine
DX: D64.9 Anemia, unspecified (principal); I10 Essential (primary) hypertension
CPT/HCPCS: 80048; 85027; 82607; 83540; 83550

== ENCOUNTER → 2020-12-29 13:54 | Outpatient (BNVA) | payer OTHER, SELFPAY | PROVIDERS: PCP Family Medicine; Referring Provider Family Medicine; Visit Provider Physical Therapy Assistant | DX: Z12.11 Encounter for screening for malignant neoplasm of colon (principal); I10 Essential (primary) hypertension; Z86.010 Personal history of colon polyps ==

== ENCOUNTER 2021-01-11 02:18 | Outpatient (CLI) | payer OTHER, SELFPAY ==
[2021-01-11 15:32] LABS: Source Nasal/Nares
[2021-01-11 20:37] LABS: COVID-19 PCR Negative (Negative)
== END 2021-01-11 02:19 | disposition home or self-care (01) ==
LOC: LBO 02:19
PROVIDERS: PCP Family Medicine; Visit Provider Surgery
DX: Z20.822 Contact with and (suspected) exposure to COVID-19 (principal)
CPT/HCPCS: 87635

== ENCOUNTER 2021-01-13 09:52 | Day surgery (SDC) | payer OTHER, SELFPAY ==
--- NOTE | 2021-01-12 14:50 | W.COLOREPORT ---
Colonoscopy Report Date of procedure: 01/13/21 Pre-op diagnosis general: A. polyps in 2014 Post-op diagnosis procedure note: other (divertic) Surgeon: Zahra Henderson Anesthesia Type: General:No Airway Pathology: none sent Complications: None Disposition: same day Prep: Miralax/Dulcolax Retraction Time: 7 mins Procedure Description: After informed consent was obtained the patient was taken to the procedure room and placed in a left decubitous position. Monitors were applied and a time out was done. The patients name, date of , procedure, allergies to medications and metal in their body was reviewed. The patient was then sedated. Once sedated and comfortable a rectal exam was done. External exam was normal. Internal exam revealed a normal sphincter tone and no palpable masses. The scope was then introduced and retrofelexed. No internal hemorrhoids were identified. The scope was then advanced to the cecum w/ some difficulty. The colon must be on a very long mesentery; it is very floppy and has poor tone. The TI and appendiceal orifice were identified. The prep was good. The scope was then slowly retracted over 7 minutes back into the rectum. He has a few diverticula within the sigmoid colon. There is no signs of active bleeding or infection. no polyps. The scope was removed and the patient was woken up and taken back to Same day surgery in stable condition. The patient tolerated the procedure well and there were no immediate complications. Follow up: The patient does not require any further colonoscopies, unless they develop changes in bowel habits or other new gastrointestinal complaints.
--- NOTE | 2021-01-12 14:51 | PDOC.DSDIS_ITS ---
Discharge Plan Disposition Patient Disposition: HOME Condition: Good Discharge Details Reason For Visit: colon scope Attending Provider: Zahra Henderson Primary Care Provider: Ashwin Silva Home Meds and New Rx's Prescriptions: Continued cholecalciferol (vitamin D3) 25 mcg (1,000 unit) capsule 25 mcg PO DAILY RF: 0 lamotrigine 25 mg Tablet 25 mg PO BID RF: 0 lisinopril 10 mg Tablet 10 mg PO DAILY RF: 0 acetaminophen 500 mg tablet 1,000 mg PO Q8H PRN (Reason: pain) Qty: 60 RF: 3 ibuprofen 600 mg tablet 600 mg PO TID PRNQty: 60 RF: 3 Restasis 0.05 % dropperette 1 drp ophthalmic (eye) BID RF: 0 naproxen 500 mg tablet 500 mg PO BID PRNRF: 0 Discontinued bisacodyl [Dulcolax (bisacodyl)] 5 mg tablet,delayed release (DR/EC) 5 mg PO ONCE Qty: 4 RF: 0 polyethylene glycol 3350 17 gram/dose powder 238 g PO ONCE Qty: 238 RF: 0 Discharge Instructions Additional Instructions: DSU Colonoscopy Post- Op Instructions Instructions for Everyone who is given Anesthesia: For your safety, please do the following for the next twenty-four (24) hours: *Do Not operate a motor vehicle (car, truck, motorcycle, etc.) *Do Not drink alcoholic beverages or use any recreational drugs for the first 24 hours or while taking pain medications. The medications in your body may have a reaction that can be dangerous. *Do Not make any important decisions or sign any important papers. Findings:few diverticula no polyps Follow up: Do not require any further routine screening colonoscopy's. If you do notice any changes in your bowel habits, any persistent rectal bleeding, pain or difficulty moving your bowels, or unexplained weight loss, please contact your primary care provider, as these are signs you may need another colonoscopy. 1. No lifting over 20 pounds or strenuous activity for the first 24 hours after your procedure. After 24 hours there are no restrictions on your activity but you may feel fatigued for a few days. 2. After you arrive home you may have a light meal and return to your normal diet as you can tolerate it without feeling sick to your stomach. 3. You may have a bloated, gaseous feeling in your belly (abdomen) after a col onoscopy. Passing gas and belching will help. Walking or lying down on your left side with your knees flexed may relieve the discomfort. Call the office at [phone] (Office) or [phone] (Hospital) right away if you notice any of the following: a.Vomiting of blood or ?coffee ground stools?. b.Rectal bleeding 1Tbsp, blood clots or continuous bleeding. c.Severe belly (abdominal) pain. d.A hard distended belly (abdomen) and an inability to pass gas. 4. Please don?t expect to have a normal BM (bowel movement) for 2-3 days after your procedure. 5. If there are questions regarding the findings of your procedure, please contact your doctor 6. If you are unable to contact your doctor with a problem, contact the hospital at [phone]. 7. Continue all your regular medications unless directed otherwise. I understand the above instructions and have no questions. Signature of Patient or Adult Escort Name of Responsible Adult Escort Signature of Nurse Date/Time Activity:: see above Diet:: see above Discharge Orders Discharge Orders: Discharge Order (Routine); Ordered 09/16/21 Ordered By: Zahra M Stoiber DS: Diagnosis Discharge Diagnosis (1) Diverticula of colon: Status: Acute
--- NOTE | 2021-01-13 09:42 | ANES.PREOP_ITS ---
General Info Date of Service Date Performed: 01/13/21 Height: 5 ft 9 in Weight: 72.631 kg Body Mass Index (BMI): 23.6 Surgical Procedure: Operation Date: 01/13/21 09:50 Proposed Procedures Side Surgeon josé miguel Henderson, Meds Allergies and Home Medications Allergies Allergy/AdvReac Type Severity Reaction Status Date / Time Sulfa (Sulfonamide Allergy Intermediate Unverified 01/13/21 10:24 Antibiotics) Home Medication Medication Instructions Recorded lamotrigine 25 mg PO BID 10/05/19 lisinopril 10 mg PO DAILY 10/05/19 acetaminophen 1,000 mg PO Q8H PRN #60 tab 10/06/19 ibuprofen 600 mg PO TID PRN #60 tab 10/06/19 Restasis 1 drp OPHTHALMIC (EYE) BID 06/17/20 cholecalciferol (vitamin D3) 25 25 mcg PO DAILY 09/14/20 mcg (1,000 unit) capsule bisacodyl 5 mg tablet,delayed 5 mg PO ONCE #4 tab 12/29/20 release polyethylene glycol 3350 17 238 g PO ONCE #238 g 12/29/20 gram/dose oral powder naproxen 500 mg PO BID PRN 01/13/21 Current Visit Medications: Current Medications Generic Name Dose Route Start Last Admin Trade Name Freq PRN Reason Stop Dose Admin Hyoscyamine Sulfate 0.125 mg 01/12/21 14:49 Hyoscyamine 0.125 Mg Sl/Oral/Chew SL DIRECTED PRN Ringer's Solution 1,000 mls @ 80 mls/hr 01/13/21 06:00 IV 02/11/21 23:59 INFUSION [facility] IV Miscellaneous Supplies 1 each 01/13/21 06:00 Iv Access IV 02/11/21 23:59 DIRECTED PEYMAN Ondansetron HCl 4 mg 01/12/21 14:49 Ondansetron 4 Mg/2 Ml Vial IVP Q4H PRN PRN Nausea / Vomiting Sodium Chloride 0 ml 01/13/21 06:00 Normal Saline Flush 10 Ml Syr IV 02/11/21 23:59 PRN PRN Sodium Chloride 0 ml 01/13/21 06:00 Normal Saline 10 Ml Vial IJ 02/11/21 23:59 DIRECTED PRN Sterile Water 0 ml 01/13/21 06:00 Water,Injection,Sterile 10 Ml Vial IJ 02/11/21 23:59 DIRECTED PRN PFSH Active Problems Active Problems: Problem Status Onset Code Screening for colon cancer Z12.11 Abrasion of arm, right S40.811A Carpal tunnel syndrome of right wrist G56.01 Infected puncture wound T14.8, L08.9 Dog bite W54.0XXA Carpal tunnel syndrome of left wrist G56.02 Medical History Medical History Actinic keratoses Alcohol abuse, in remission Anemia Bipolar 2 disorder Carpal tunnel syndrome, bilateral Dry skin Hammer toe, acquired History of colon polyps Hyperlipidemia Hypertension Memory impairment Migraine headache Plantar fasciitis Prediabetes Screening for colon cancer Surgical History Surgical History Carpal tunnel syndrome of right wrist Status post right ECTR on 07/15/2018 History of colonoscopy History of removal of cyst Tobacco Smoking/Tobacco Use Status: Former Tobacco Use Alcohol Alcohol Intake: former Substance Use Substance use: Rarely Substance use type: marijuana Vital Signs and Lab Results Vital Signs Most Recent Vital Signs in EMR: Temp Pulse Resp BP Pulse Ox 36.6 C 66 20 128/80 97 01/13/21 10:28 01/13/21 10:28 01/13/21 10:28 01/13/21 10:28 01/13/21 10:28 Lab Results Blood Type / Crossmatch: No Data to Display Complete Blood Count: No Data to Display Complete Metabolic Panel: No Data to Display Liver Function Panel: No Data to Display Coagulation Panel: No Data to Display Cardiac Panel: No Data to Display Arterial Blood Gas: No Data to Display Venous Blood Gas: No Data to Display Pancreas Panel: No Data to Display Thyroid Panel: No Data to Display Infectious Disease: Coronavirus (COVID-19)(PCR) Negative (Negative) 01/11/21 09:00 01/11/21 Coronavirus 2019 Source Nasal/Nares 01/11/21 09:00 01/11/21 Blood Cultures: No Data to Display Toxicology Panel: No Data to Display Imaging and Studies Imaging and Studies Stress Test Summary: 01/15: normal study after maximal exercise. Anesthesia Assessment and Plan Anesthesia History Personal History: No History of Anesthesia Complications Family History: No Family History of Anesthesia Complications Exercise Tolerance Exercise Tolerance: Metabolic Equivalents>4 Cardiac & Pulmonary Exam Cardiac Exam: Normal S1/S2 Heart Sounds Pulmonary Exam: Clear Bilateral Breath Sounds Airway Exam Known Difficult Airway: No Mallampati Class: 4 Mouth Opening: Narrow (< 3cm) Thyromental Distance: Less than 3 cm Neck Range of Motion: Limited ROM Neck Circumference: Normal Teeth Condition: Normal Dentition and Loose or Chipped (implant/bridge in front with chips. ) ASA Classification ASA Score: ASA 2 Emergency Case?: No NPO Status NPO Status: NPO Clears >2 hours, Solids >8 hours Anesthesia Plan Resuscitation Status: Full Code Anesthesia Technique: General Anesthesia Airway Planned: Natural Airway Monitors Used: Standard Monitors Preoperative Comments:: 75 yo male for screening colo. Last colo in 2013 had tubular adenoma. PMHx: HTN (lisinopril), prediabetes, former smoker, migraine.
[2021-01-13 10:28] VITALS: BP 128/80; PULSE 66; RESP 20; TEMP 36.6; O2SAT 97
[2021-01-13 10:46] VITALS: BMI 23.6
[2021-01-13] MEDS: Lactated Ringers 1,000 ML 80 ML IV (12:25)
[2021-01-13 13:04] VITALS: BP 109/71; PULSE 54; RESP 16; TEMP 36.6; O2SAT 97
[2021-01-13 13:26] VITALS: BP 124/81; PULSE 53; RESP 18; TEMP 36.5; O2SAT 100
--- NOTE | 2021-01-13 16:02 | W.ANESPOSTOP ---
Postoperative Evaluation Date, Time and Location Date Performed: 01/13/21 Time Performed: 13:30 Patient Location: Day Surgery Unit Vital Signs Most Recent Imported Vital Signs: Most Recent Vital Signs Temp Pulse Resp BP Pulse Ox 36.5 C 53 L 18 124/81 100 01/13/21 13:26 01/13/21 13:26 01/13/21 13:26 01/13/21 13:01/13/21 13:26 Pain Score Most Recent Pain Score: Most Recent Pain Score Pain Level 2 01/13/21 10:28 Assessment Mental Status: Awake (Alert & Oriented to Patient Baseline) Airway and Respiratory Function: Patent airway with normal (patient baseline) respiratory exam Cardiovascular Function: Hemodynamically Stable Hydration Status: Adequately Hydrated Nausea & Vomiting: No Nausea or Vomiting Pain: Pt. Denies Any Pain Peripheral Nerve Block: Patient did not receive a nerve block
== END 2021-01-13 13:57 | disposition home or self-care (01) ==
LOC: SUR 09:52
PROVIDERS: PCP Family Medicine; Visit Provider Surgery
PROC: 0DJD8ZZ Inspection of Lower Intestinal Tract, Via Natural or Artificial Opening Endoscopic (ICD-10-PCS; CPT 45378; principal; 2021-01-13 10:30)
DX: Z12.11 Encounter for screening for malignant neoplasm of colon (principal); Z86.010 Personal history of colon polyps; K57.30 Diverticulosis of large intestine without perforation or abscess without bleeding
CPT/HCPCS: G0105; J2001

== ENCOUNTER → 2021-09-22 01:07 | Outpatient (CLI) | payer MEDICARE, SELFPAY ==
--- NOTE | 2021-09-22 08:30 | DI.MRI_ITS ---
Exam(s) MR LUMBAR SPINE WO EXAM: MR LUMBAR SPINE WO CLINICAL HISTORY: BUTTOCK PAIN X 3-4 MOS, R52;PATTERN CONCERNING FOR PINCHED NERVE IN L-SPINE. TECHNIQUE: Multiplanar multisequence MRI of the Lumbar spine was performed. COMPARISON: CR XR FINGER LT INDEX from 06/17/2020 FINDINGS: Bones: The last intervertebral disc space is designated the L5/S1 level for the numbering purpose of this examination. The vertebral body heights are well maintained. Mild degenerative scoliosis.. Th e marrow signal characteristics are unremarkable. Cord: The conus tip ends at the T12 level. It is of normal size and signal intensity. Degenerative disc changes are seen throughout with mild to moderate loss of disc height and endplate osteophytes.. Facet degenerative changes are also present throughout. Findings combine to produce b ilateral neural foraminal narrowing at all levels.. Prominent ligamentous hypertrophy is also seen at L3-4 and L4-5. There is no evidence of a disc herniation at any level. T11-12: Mild central canal stenosis. T12-L1: Mild central canal stenosis. L1-2: Mild central canal stenosis. L2-3: Cooh-cn-isschupc central canal stenosis. L3-4: Severe central canal stenosis, greater of the AP dimension. Mainly secondary to facet degenerat yesenia changes and ligamentous hypertrophy. L4-5: Moderate to severe central canal stenosis, greater of the AP dimension. L5-S1 no significant central canal stenosis.. The visualized SI joints and sacrum are well maintained. Soft tissues: The paraspinal soft tissues are unremarkable. IMPRESSION: Degenerative disc changes and facet degenerative changes combine to produce severe central canal sten osis at L3-4 moderate to severe central canal stenosis at L4-5. There is also severe bilateral multil evel neural foraminal narrowing. DATA REPOSITORY:
== END ==
PROVIDERS: PCP Family Medicine; Visit Provider Family Medicine
DX: M51.36 Other intervertebral disc degeneration, lumbar region; M47.816 Spondylosis without myelopathy or radiculopathy, lumbar region; M99.53 Intervertebral disc stenosis of neural canal of lumbar region; M79.18 Myalgia, other site
CPT/HCPCS: 72148

== ENCOUNTER 2021-10-05 10:02 | Outpatient (CLI) | payer MEDICARE, SELFPAY ==
--- NOTE | 2021-10-05 09:43 | DI.RAD_ITS ---
Exam(s) XR KNEE RT 3V AP,LAT,DEVIN EXAM: XR KNEE RT 3V AP,LAT,DEVIN CLINICAL HISTORY: right leg pain. TECHNIQUE: 2D digital imaging was performed. COMPARISON: No exams were available for comparison FINDINGS: 3 views There is no evidence of fracture but there is a joint effusion. There is moderate-severe narrowing of the medial and lateral compartments seen on the weight-bearing views. Also significant degenerative changes in the patellofemoral compartment as seen on the latera l view. Bone density normal. Degenerative subarticular cysts seen in the mid tibial plateau. IMPRESSION: Degenerative changes. Joint effusion. No fracture evident. DATA REPOSITORY: RADIATION DOSE DELIVERED:
== END 2021-10-05 10:03 | disposition home or self-care (01) ==
LOC: DIORS 10:02
PROVIDERS: PCP Family Medicine; Visit Provider Physician Assistant
DX: M17.11 Unilateral primary osteoarthritis, right knee (principal)
CPT/HCPCS: 20610; 73562; J1040

== ENCOUNTER 2022-01-22 13:13 | Outpatient (REF) | payer MEDICARE, SELFPAY ==
[2022-01-22 15:43] LABS: Anion Gap 7.2 mmol/L (3-11); BUN 20 mg/dL (7-18); CO2 29.8 mmol/L (21.0-32.0); Calcium 9.2 mg/dL (8.5-10.1); Chloride 106 mmol/L (98-107); Estimated GFR 77.04 (mL/min/1.73m2); Glucose 110 mg/dL (74-106); Potassium 4.2 mmol/L (3.5-5.1); Sodium 143 mmol/L (136-145)
== END 2022-01-22 13:14 | disposition home or self-care (01) ==
LOC: NCHCN 13:13
PROVIDERS: PCP Family Medicine; Visit Provider Family Medicine
DX: I10 Essential (primary) hypertension (principal)
CPT/HCPCS: 80048

== ENCOUNTER 2023-01-23 13:19 | Outpatient (REF) | payer MEDICARE, SELFPAY ==
[2023-01-23 17:15] LABS: BUN 17 mg/dL (7-18); CREATININE 0.9 mg/dL (0.70-1.30); Calcium 9.4 mg/dL (8.5-10.1); Chloride 104 mmol/L (98-107); Estimated GFR 86.88 (mL/min/1.73m2); Glucose 96 mg/dL (74-106); Potassium 3.9 mmol/L (3.5-5.1); Sodium 141 mmol/L (136-145); Vitamin B12 357 pg/mL (193-986)
[2023-01-23 17:25] LABS: Anion Gap 11.8 mmol/L (3-11); CO2 25.2 mmol/L (21.0-32.0)
[2023-01-23 18:07] LABS: Hemoglobin A1C 5.8 % (<5.7)
== END 2023-01-23 13:20 | disposition home or self-care (01) ==
LOC: NCHCN 13:19
PROVIDERS: PCP Family Medicine; Visit Provider Family Medicine
DX: R73.03 Prediabetes (principal); R41.3 Other amnesia; I10 Essential (primary) hypertension
CPT/HCPCS: 80048; 82607; 83036

== ENCOUNTER 2023-06-20 09:48 | Emergency (ER) | payer MEDICARE, SELFPAY ==
[2023-06-20 09:56] VITALS: BP 187/149; PULSE 85; RESP 18; TEMP 36.8; O2SAT 96
[2023-06-20] MEDS: Ketorolac 15 MG/ML VIAL 7.5 MG IM (10:44)
[2023-06-20] MEDS: diazePAM 5 MG TAB PO (10:45)
[2023-06-20] MEDS: Acetaminophen 500 MG TAB 1000 MG PO (10:45)
[2023-06-20 11:25] VITALS: BP 168/82; PULSE 90; PULSE 98; RESP 16; O2SAT 99
--- NOTE | 2023-06-20 12:08 | ED.GENADUL_ITS ---
Discharge Plan Disposition Patient Disposition: Home Condition: Stable Discharge Details Clinical Impression: Pain, dental Primary Care Provider: Ashwin Silva ED Provider: Bridget Nolasco Home Meds and New Rx's Prescriptions: Continued cholecalciferol (vitamin D3) 25 mcg (1,000 unit) capsule 25 mcg PO DAILY lamotrigine 150 mg tablet 150 mg PO BID amlodipine 5 mg tablet 5 mg PO ONCE Patient Comments: TAKE ONE TABLET BY MOUTH EVERY DAY cyclobenzaprine 5 mg tablet 5 mg PO ONCE cyclosporine [Restasis] 0.05 % dropperette 1 drp ophthalmic (eye) BID Patient Comments: Instill 1 drop into both eyes twice a day Discharge Instructions Instructions: Toothache (ED) Additional Instructions: Please follow-up with Dr. Reilly to be evaluated and return to the emergency department as needed HPI General Date/Time Provider Initiated Documentation: 06/20/23 10:02 . HPI Narrative: 77-year-old male presents with a right lower dental pain and trismus. He states that he is post crown removal 2 days prior to arrival. He was evaluated ye sterday and started on Flexeril with trismus. Denies any chest pain, shortness of breath, headache. States he is having significant difficulty opening his jaw secondary to pain. He denies difficulty swallowing or shortness of breath. He has taken 1 dose of Flexeril which he states has not really helped his pain. He denies any falls or injuries. He states his symptoms came on gradually and denies any symptoms while the procedure is being performed. Not currently on any antibiotic. Related Data Home Medications Medication Instructions Recorded Confirmed cyclosporine 0.05 % eye drops in a 1 drp ophthalmic (eye) BID 06/17/20 06/20/23 dropperette (Restasis) cholecalciferol (vitamin D3) 25 25 mcg PO DAILY 09/14/20 06/20/23 mcg (1,000 unit) capsule lamotrigine 150 mg tablet 150 mg PO BID 09/08/21 06/20/23 amlodipine 5 mg tablet 5 mg PO ONCE 06/20/23 06/20/23 cyclobenzaprine 5 mg tablet 5 mg PO ONCE 06/20/23 06/20/23 Allergies Allergy/AdvReac Type Severity Reaction Status Date / Time Sulfa (Sulfonamide Allergy Intermediate Skin Rash Unverified 06/20/23 10:03 Antibiotics) General Stated Complaint: DentalOral EDITH: 4 Course Vital Signs Vital signs: Vital Signs Temperature 36.8 C 06/20/23 09:56 Pulse 85 06/20/23 09:56 Respiratory Rate 18 06/20/23 09:56 Blood Pressure 187/149 H 06/20/23 09:56 Pulse Oximetry 96 06/20/23 09:56 Temperature 36.8 C 06/20/23 09:56 Temperature Source Skin 06/20/23 09:56 Pulse 90 06/20/23 11:25 Respiratory Rate 16 06/20/23 11:25 Respiratory Effort Normal 06/20/23 10:03 Blood Pressure 168/82 H 06/20/23 11:25 Blood Pressure Position Sitting 06/20/23 09:56 Pulse Oximetry 99 06/20/23 11:25 Oxygen Delivery Method Room Air 06/20/23 09:56 Oxygen Flow Rate 0 06/20/23 09:56 Pain Level 9 06/20/23 11:25 Medical Decision Making This 77-year-old gentleman presents with right lower dental pain with radiation into his face and jaw. He denies any chest pain or shortness of breath He is alert and oriented, he is hypertensive but in a great deal of pain The pain is reproducible on assessment and he is having some trismus, he is able to move his jaw and I do not see obvious evidence of dislocation, low suspicion clinically for dizziness no neurological signs or symptoms appreciated Cardiac rate rhythm regular, lungs clear to auscultation bilaterally No carotid bruit Patient is afebrile, trismus appreciated, approximately 1 cm of jaw opening, reproducible lower dental pain, uvula midline, oropharynx patent At this time I think patient likely has dental etiology of his pain, Dr. Santoro was consulted and requests that we send the patient to his office for assessment as his coworker perform procedure initially He will send patient back to the emergency depart patient discharged in care of his with a nonfocal neurological exam Quality:SDOH Health Related Social Needs: No Data to Display PFSH All Active Problems (Updated 06/20/23 @ 11:19 by DK Landa) Pain, dental (Acute) Osteoarthritis of right knee (Acute) DEPO MEDROL 10/05/21 Diverticula of colon (Acute) Screening for colon cancer (Acute) Abrasion of arm, right (Acute) Carpal tunnel syndrome of right wrist (Chronic) Status post right ECTR on 07/15/2018 Infected puncture wound (Acute) Dog bite (Acute) Carpal tunnel syndrome of left wrist (Chronic) s/p L ECTR on 10/06/19 Medical History (Updated 06/20/23 @ 11:19 by DK Landa) Carpal tunnel syndrome, bilateral History of colon polyps Plantar fasciitis Hammer toe, acquired Actinic keratoses Alcohol abuse, in remission Memory impairment Dry skin Bipolar 2 disorder Anemia Prediabetes Migraine headache Hypertension Hyperlipidemia Surgical History History of removal of cyst History of colonoscopy Family History Mother No problems noted. Father Personal history of malignant neoplasm Small bowel malignancy Social History (Updated 12/29/20 @ 14:20 by DK Bower) Smoking/Tobacco Use Status: Former Tobacco Use Quit Date: 04/29/91 Smoking risk assessment performed?: Yes Alcohol Intake: former Drug use: Rarely Substance use type: marijuana Details: 01/13/21 Patient states it has been 3-4 weeks. Do you feel safe at home: Yes Do you feel safe in your relationship?: Yes
== END 2023-06-20 11:27 | disposition home or self-care (01) ==
PROVIDERS: Emergency Provider Physician Assistant; PCP Family Medicine
DX: R68.84 Jaw pain (principal); K08.89 Other specified disorders of teeth and supporting structures; I10 Essential (primary) hypertension; E78.5 Hyperlipidemia, unspecified; Z87.891 Personal history of nicotine dependence
CPT/HCPCS: 96372; 99284; 99283; J1885

== ENCOUNTER 2023-07-16 13:25 | Outpatient (REF) | payer MEDICARE, SELFPAY ==
[2023-07-17 10:57] LABS: Syphilis Serology (RPR) Negative (Negative)
== END 2023-07-16 13:26 | disposition home or self-care (01) ==
LOC: NCHCN 13:25
PROVIDERS: PCP Family Medicine; Visit Provider Family Medicine
DX: R73.03 Prediabetes (principal); R41.3 Other amnesia
CPT/HCPCS: 83036; 86592

== ENCOUNTER → 2023-09-09 14:25 | Outpatient (BNVA) | payer MEDICARE, SELFPAY | PROVIDERS: PCP Family Medicine; Referring Provider Family Medicine; Visit Provider Student in an Organized Health Care Education/Training Program | DX: M17.11 Unilateral primary osteoarthritis, right knee (principal) | CPT/HCPCS: 20610; J1010 ==

== ENCOUNTER 2024-09-18 19:21 | Outpatient (REF) | payer MEDICARE, SELFPAY ==
[2024-09-18 17:48] LABS: Abs Immature Grans 0.02 10^3/uL (0.0-0.06); Absolute Basophil Count 0.01 10^3/uL (0.0-0.2); Absolute Eosinophil Count 0.09 10^3/uL (0.0-0.7); Absolute Lymphocyte Count 1.52 10^3/uL (1.2-3.4); Absolute Monocyte Count 0.63 10^3/uL (0.1-0.8); Absolute Neutrophil Count 4.33 10^3/uL (1.2-6.7); Basophils % 0.2 %; Eosinophils % 1.4 %; HCT 41.8 % (40.0-50.0); HGB 13.7 g/dL (13.5-17.5); Immature Grans % 0.3 %; MCH 31.2 pg (27.0-33.0); MCHC 32.8 % (32.0-36.0); MCV 95 fL (80-95); MPV 10.8 fL (8.0-11.0); Monocytes % 9.5 %; Neutrophils % 65.6 %; Platelet Count 341 10^3/uL (130-400); RBC 4.39 10^6/uL (4.36-5.78); RDW 12.8 % (11.8-14.1); RDW-SD 45.1 fL
[2024-09-18 17:54] LABS: ESR 3 mm/hr (0-20)
[2024-09-18 18:06] LABS: ALT 25 U/L (16-63); AST 27 U/L (15-37); Albumin 3.9 g/dL (3.4-5.0); Alkaline Phosphatase 99 U/L (46-116); Anion Gap 5.6 mmol/L (3-11); BUN 18 mg/dL (7-18); Bilirubin, Total 0.3 mg/dL (0.2-1.0); CO2 30.4 mmol/L (21.0-32.0); CREATININE 0.9 mg/dL (0.70-1.30); Chloride 107 mmol/L (98-107); Estimated GFR 86.34 (mL/min/1.73m2); FREE T4 0.92 ng/dL (0.76-1.46); Glucose 97 mg/dL (74-106); Potassium 4.3 mmol/L (3.5-5.1); Sodium 143 mmol/L (136-145); TSH 1.11 uIU/mL (0.36-3.74); Total Protein 6.6 g/dL (6.4-8.2)
== END 2024-09-18 19:22 | disposition home or self-care (01) ==
LOC: NCHCN 19:21
PROVIDERS: PCP Student in an Organized Health Care Education/Training Program; Visit Provider Student in an Organized Health Care Education/Training Program
DX: R59.0 Localized enlarged lymph nodes (principal); M54.2 Cervicalgia
CPT/HCPCS: 80053; 85652; 84439; 84443; 85025

== ENCOUNTER 2024-09-22 01:45 | Outpatient (CLI) | payer MEDICARE, SELFPAY ==
--- NOTE | 2024-09-22 | DI.US_ITS ---
Exam(s) US SOFT TISSUE HEAD OR NECK EXAM: US SOFT TISSUE HEAD OR NECK CLINICAL HISTORY: NECK PAIN ON LT,M54.2,MASS,? LYMPH NODE,? MALIGNANCY. TECHNIQUE: Ultrasound was performed using standard protocol. COMPARISON: US US scrotum from 08/22/2018 FINDINGS: Sonographic assessment utilizing grayscale and color Doppler imaging was performed and targeted to th e area of clinical concern. In the left supraclavicular region there is a small benign-appearing 5 x 3 x 5 mm lymph node. Posterior to this on the left side is a posterior cervical node measuring 11 x 2.6 x 5.6 mm, also exh ibiting benign appearance. No abnormal fluid collections seen in these regions IMPRESSION: Two benign-appearing lymph nodes as described above. If clinically indicated repeat ultrasound in a few months time can be performed to ensure stability. DATA REPOSITORY:
--- NOTE | 2024-09-22 | DI.US_ITS ---
Exam(s) US THYROID EXAM: US THYROID CLINICAL HISTORY: NECK PAIN LT SIDE,M54.2,POSTEROLATERAL MASS/NODULE,THYROID NODULARITY. TECHNIQUE: Ultrasound thyroid performed using standard protocol. COMPARISON: US US SOFT TISSUE HEAD OR NECK from 09/22/2024 FINDINGS: RIGHT THYROID LOBE: Measures 2.1 cm AP x 2.3 cm trans by 4.6 cm craniocaudal. Normal size. Normal echotexture. No nodules. No cysts. ISTHMUS: Normal thickness. There are no nodules in the isthmus. LEFT THYROID LOBE: Measures 1.5 cm AP x 1.3 wide x 4.2 cm craniocaudal There 2 small sub cm benign colloid cysts, 1 superiorly and 1 inferiorly in the left lobe. In additi on, there is a benign-appearing small nodule located inferiorly which measures 0.6 x 0.3 x 0.5 cm and appears partially solid-partially cystic. Grading of this nodule is as follows: Composition: Mixed [id number] points Echogenicity: Solid component is isoechoic-1 points Shape: Wider than taller in the transverse plane-0 points Margin: Smooth-0 points Echogenic Foci: None-0 points Total points for this nodule: New ACR Ti-Rads Category: 2 LYMPH NODES: There is no significant adenopathy. IMPRESSION: 1. Thyroid gland size is normal 2. There is a benign-appearing 6 x 3 x 5 mm partially solid partially cystic TR 2 level nodule in the inferior aspect of the left thyroid lobe. This does not require biopsy and can be followed conserva tively. 3. There are 2 small benign colloid cysts in the left lobe also noted 4. There is no significant lymphadenopathy adjacent to the thyroid lobes. DATA REPOSITORY:
== END 2024-09-22 02:05 ==
LOC: DI 01:45
PROVIDERS: PCP Student in an Organized Health Care Education/Training Program; Visit Provider Student in an Organized Health Care Education/Training Program
DX: M54.2 Cervicalgia (principal); E04.1 Nontoxic single thyroid nodule
CPT/HCPCS: 76536

== ENCOUNTER 2025-01-19 16:06 | Outpatient (REF) | payer MEDICARE, SELFPAY ==
[2025-01-19 16:43] LABS: Folate 17.1 ng/mL (8.6-20.0); Vitamin B12 561 pg/mL (193-986)
[2025-01-20 11:02] LABS: Lyme Ab w Rflx to Lyme Confirm Negative (Negative)
[2025-01-20 11:15] LABS: HIV-1/2 Ag & Ab Screen Negative (Negative)
== END 2025-01-19 16:07 | disposition home or self-care (01) ==
LOC: NCHCN 16:06
PROVIDERS: PCP Student in an Organized Health Care Education/Training Program; Visit Provider Student in an Organized Health Care Education/Training Program
DX: R35.0 Frequency of micturition (principal); R41.3 Other amnesia; Z11.4 Encounter for screening for human immunodeficiency virus [HIV]
CPT/HCPCS: 87389; 82607; 82746; 84154; 86618

== ENCOUNTER → 2025-02-22 12:53 | Outpatient (BNVA) | payer MEDICARE, SELFPAY | PROVIDERS: PCP Student in an Organized Health Care Education/Training Program; Referring Provider Student in an Organized Health Care Education/Training Program; Visit Provider Nurse Practitioner Gerontology | DX: R35.0 Frequency of micturition (principal); R39.15 Urgency of urination; R39.9 Unspecified symptoms and signs involving the genitourinary system | CPT/HCPCS: 99215; 81002; 51798 ==